=== PATIENT | female | born 1975 | race Caucasian/White ===

== ENCOUNTER 2016-09-09 14:08 | Emergency (ER) | payer SELFPAY ==
[~2016-09-09] VITALS: Ht 157.5 cm; Wt 65.5 kg
[~2016-09-09 14:08] MED LIST: ACET1TAB40 PO; CYCL-319 PO; IBUP-1542 PO
[2016-09-09 14:36] VITALS: Ht 157.5 cm; Wt 65.5 kg
[2016-09-09] MEDS ORDERED: PHEN177L2 PO (14:52)
[2016-09-09] MEDS ORDERED: LORA-777 PO (14:52)
[2016-09-09] MEDS ORDERED: FLUT9.9S NASAL (14:52)
[2016-09-09] MEDS ORDERED: GUAI120011 PO (14:54)
--- NOTE | 2016-09-09 16:18 | ERD ---
ER Documentation Chief Complaint Date/Time DATE: 09/09/16 TIME: 16:[address] BELLAMY AND BILA EAR PAIN HPI This is a 41-year-old female presenting to the emergency department complaining of headache, sore throat, bilateral ear pain for the past week. Patient states that she has body chills that come and go. She complains of cough with chest pain that occurs with cough, denies shortness of breath. Patient has tried Aleve, Tylenol and Robitussin without much relief. ROS All systems reviewed and are negative except as per history of present illness. Medications Home Meds Active Scripts Guaifenesin (Mucinex) 1,200 Mg Tab.er.12h, 1200 MG PO BID, #120 TAB Prov:PINEDA SANCHEZ PA-C 09/09/16 Fluticasone Propionate (Flonase Allergy Relief) 9.9 Ml [place].susp, 1 SPRAY NASAL BID, #1 BOTTLE TO EACH NOSTRIL Prov:PINEDA SANCHEZ PA-C 09/09/16 Loratadine/Pseudoephedrine (CLARITIN-D 24 HOUR TABLET) 1 Each Tab.er.24h, 1 TAB PO DAILY, #30 TAB Prov:PINEDA SANCHEZ PA-C 09/09/16 Phenylephrine/Dm/Acetaminop/Gg (Mucinex Oyis-Tqf-Krkgvniody Liquid) 177 Ml Liquid, 5 ML PO Q6, #120 ML Prov:PINEDA SANCHEZ PA-C 09/09/16 Cyclobenzaprine Hcl* (Cyclobenzaprine Hcl*) 10 Mg Tablet, 10 MG PO TID, #21 TAB Prov:CHODAISY 10/02/14 Acetaminophen-Codeine* (Acetaminophen-Cod #3*) 300-30 Mg Tab, 1 TAB PO Q4H Y for PAIN LEVEL 6-10, #15 TAB Prov:CHO,DAISY 10/02/14 Ibuprofen* (Motrin*) 600 Mg Tab, 600 MG PO Q6 for PAIN LEVEL 1-5, #15 TAB Prov:CHO,DAISY 10/02/14 Allergies Allergies: Coded Allergies: No Known Allergy (Unverified , 10/02/14) PMhx/Soc History of Surgery: Yes (HERNIA REPAIR ) Hx Alcohol Use: No Hx Substance Use: No Hx Tobacco Use: No Physical Exam Vitals Vital Signs Date Time Temp Pulse Resp B/P Pulse Ox O2 Delivery O2 Flow Rate FiO2 09/09/16 14:36 99.1 94 18 135/70 99 Physical Exam GENERAL: well-developed/well-nourished, in no apparent distress, non-toxic appearing HEAD: NC/AT, no swelling noted in frontal or maxillary areas EARS: bilateral tympanic membrane is intact without erythema or effusion NARES: congested THROAT: Nonerythematous EYES: Conjunctiva normal NECK: Supple, no lymphadenopathy PULM: CTA bilaterally, no rales, rhonchi, or wheezing heard CV: Normal S1S2, RRR, good capillary refill GI: Soft, non-distended, normal bowel sounds, non-tender BACK: No midline tenderness, no masses EXT No clubbing, cyanosis, or edema NEURO: Alert and Orientated SKIN: Intact, normal turgor PSYCH: Normal mood and mentation Procedures/MDM MDM: 41-year-old female presents to the ER with upper respiratory infection and sinusitis, most likely viral. Low suspicion for mastoiditis, pneumonia, strep pharyngitis, or pulmonary emergencies due to physical examination. Disposition: Hemodynamically stable for discharge for home. Prescription for Claritin-D, Flonase, Mucinex was given to patient, discussed to return to the ED if not improving as expected or follow-up with a primary care physician. Patient understood and agreed with this plan. Departure Diagnosis: Primary Impression: Sinusitis Condition: Stable Patient Instructions: Self-Care for Sinusitis, Treating Chronic Sinusitis, Sinusitis, No Abx Additional Instructions: Visite a hager melanie trujillo para un EXAMEN.Regrese a estas instalaciones si no se mejora derek esperbamos o derek le dijimos. [place] toda la medicina kim y derek se le indic. Regrese a estas instalaciones si no se mejora derek esperbamos o derek le dijimos. PINEDA SANCHEZ PA-C Sep 09, 2016 16:18
== END 2016-09-09 15:20 | disposition home or self-care (01) ==
LOC: E/R 14:08
DX: J01.90 Acute sinusitis, unspecified (principal)
CPT/HCPCS: 99283